=== PATIENT | male | born 1995 | race Caucasian/White ===

== ENCOUNTER 2019-10-08 17:06 | Emergency (ER) | payer OTHER ==
[~2019-10-08] VITALS: Ht 180.3 cm; Wt 76.2 kg
[2019-10-08] MEDS ORDERED: SYNTHROID50 MCG (17:35)
== END 2019-10-08 19:37 | disposition home or self-care (01) ==
LOC: ER 17:06
DX: S05.32XA Ocular laceration without prolapse or loss of intraocular tissue, left eye, initial encounter (principal); W18.09XA Striking against other object with subsequent fall, initial encounter; Y93.89 Activity, other specified; Y92.098 Other place in other non-institutional residence as the place of occurrence of the external cause; Y99.8 Other external cause status

== ENCOUNTER 2020-10-11 16:36 | Emergency (ER) | payer OTHER ==
[~2020-10-11] VITALS: Ht 180.3 cm; Wt 72.6 kg
[~2020-10-11 16:36] MED LIST: SYNTHROID50 MCG
== END 2020-10-12 10:17 | disposition home or self-care (01) ==
LOC: ER 16:36
DX: T54.3X1A Toxic effect of corrosive alkalis and alkali-like substances, accidental (unintentional), initial encounter (principal); R25.2 Cramp and spasm; R07.89 Other chest pain; R42 Dizziness and giddiness; Y92.098 Other place in other non-institutional residence as the place of occurrence of the external cause

== ENCOUNTER 2021-05-15 10:48 | Emergency (ER) | payer OTHER ==
[~2021-05-15] VITALS: Ht 180.3 cm; Wt 70.3 kg
== END 2021-05-15 16:30 | disposition home or self-care (01) ==
LOC: ER 10:48
DX: F41.8 Other specified anxiety disorders (principal)